=== PATIENT | female | born 1965 | race Caucasian/White ===

== ENCOUNTER 2020-06-22 16:45 | Outpatient (REF) | payer SELFPAY ==
[2020-06-25 16:58] LABS: SARS-CoV-2 RNA Undetected (Undetected); SARS-CoV-2 Specimen Source Nasal
== END 2020-06-22 17:05 ==
LOC: NCHCN 16:45
PROVIDERS: Visit Provider Nurse Practitioner Family
DX: J06.9 Acute upper respiratory infection, unspecified (principal); Z11.59 Encounter for screening for other viral diseases
CPT/HCPCS: U0003

== ENCOUNTER 2023-06-27 11:50 | Emergency (ER) | payer OTHER, SELFPAY ==
[2023-06-27 12:00] VITALS: BP 133/96; PULSE 75; RESP 18; TEMP 36.9; O2SAT 97
[2023-06-27] MEDS: Ketorolac 30 MG/ML VIAL IVP (12:31)
--- NOTE | 2023-06-27 12:36 | ED.GENADUL_ITS ---
Discharge Plan Disposition Patient Disposition: Home Condition: Stable Discharge Details Clinical Impression: Acute right flank pain, Pyelonephritis Primary Care Provider: Unknown,Unknown ED Provider: Zaki Mason Home Meds and New Rx's Prescriptions: New cefpodoxime 200 mg tablet 200 mg PO BID Qty: 20 0RF Rx Instructions: must administer with a meal/food Continued trazodone 50 mg tablet 50 mg PO QHS PRN Patient Comments: TAKE 1 TABLET BY MOUTH EVERY DAY AT BEDTIME NEEDED FOR SLEEP prednisolone acetate 1 % drops,suspension 1 drp ophthalmic (eye) ONCE Rx Instructions: left eye Estring 2 mg (7.5 mcg /24 hour) ring 1 vag ring VAGINAL ONCE Patient Comments: FOLLOW PACKAGE DIRECTIONS Rx Instructions: for three months and then switch with new one. timolol maleate 0.5 % gel forming solution 1 drp ophthalmic (eye) BID Patient Comments: PLACE 1 DROP INTO THE RIGHT EYE DAILY. Rx Instructions: in right eye losartan 100 mg tablet 100 mg PO DAILY Patient Comments: TAKE 1 TABLET BY MOUTH EVERY DAY dorzolamide 2 % drops 1 drp ophthalmic (eye) BID Patient Comments: PLACE 1 DROP INTO THE RIGHT EYE 2 TIMES A DAY. Rx Instructions: in right eye bromfenac 0.09 % drops 1 drp ophthalmic (eye) BID Rx Instructions: in right eye Discharge Instructions Instructions: Kidney Infection (ED) Additional Instructions: Your presentation today is concerning for potential urinary tract infection affecting your kidney. Urine cultures have been sent today and are pending at time of discharge. You are being started empirically on an antibiotic. Should urine culture grow bacteria that are resistant to this antibiotic, you will be contacted to adjust antibiotic treatment. Should symptoms not improve with antibiotics as expected, additional diagnostic testing and treatment may be necessary. Please be sure to follow-up with your doctor. Call today to schedule timely follow-up. Return to the emergency department immediately should you have worsening or new concerning symptoms. Discharge Data Discharge Date/Time-TO BE ENTERED AT DEPARTURE: 06/27/23 14:06 Medical Decision Making 1238??58-year-old female here with intermittent, progressively worse right flank pain over the past 2 to 3 weeks. She has associated increased urinary frequency without dysuria or hematuria. Patient has no CVA tenderness and abdominal exam is benign. Patient is hemodynamically stable. Concern for pyelonephritis versus less likely ureterolithiasis versus other. I will give Toradol IV for discomfort. Screening labs and urinalysis pending. -- Urinalysis reviewed and only 3-5 WBCs noted but patient does have few bacteria noted as well as positive nitrite. Results were reviewed with the patient. We discussed additional diagnostic testing including CT imaging. As part of a shared decision-making process, patient elects for trial of antibiotic to see if resolution. She understands she should follow-up for additional outpatient diagnostic testing and treatment should symptoms persist. She was encouraged to return should she develop any worsening or new concerning symptoms. Disposition decision was made weighing the risks and benefits of hospitalization versus outpatient treatment, the risk for further decompensation, and the patient's wishes. The patient was stable and requested discharge. Lab Data Lab results reviewed: Yes I reviewed the patient's lab results. Labs: 06/27/23 12:25 Urine - Reflex from Ua Urine Culture - Final Gram Positive Jocelyn,Mixed Laboratory Tests Range/Units 06/27/23 12:25 WBC (4.4-10.8) 10^3/uL 7.23 RBC (3.93-5.22) 10^6/uL 4.50 Hgb (11.2-15.7) g/dL 13.7 Hct (36.0-46.0) % 40.8 MCV (80-95) fL 91 MCH (27.0-33.0) pg 30.4 MCHC (32.0-36.0) % 33.6 RDW (11.7-14.6) % 12.1 Plt Count (130-400) 10^3/uL 374 MPV (8.0-11.0) fL 8.9 Immature Gran % 0.1 Neutrophils % 51.7 Lymphocytes % 32.5 Monocytes % 9.4 Eosinophils % 4.8 Basophils % 1.5 Nucleated RBC % (0.0-0.3) % 0.0 Absolute Neutrophils (1.2-6.7) 10^3/uL 3.73 Absolute Lymphocytes (1.2-3.4) 10^3/uL 2.35 Absolute Monocytes (0.1-0.8) 10^3/uL 0.68 Absolute Eosinophils (0.0-0.7) 10^3/uL 0.35 Absolute Basophils (0.0-0.2) 10^3/uL 0.11 Sodium (136-145) mmol/L 140 Potassium (3.5-5.1) mmol/L 3.5 Chloride (98-107) mmol/L 105 Carbon Dioxide (21.0-32.0) mmol/L 28.5 Anion Gap (3-11) mmol/L 6.5 BUN (7-18) mg/dL 11 Creatinine (0.55-1.02) mg/dL 0.7 Est GFR (CKD-EPI 2020) (mL/min/1.73m2) 99.57 Glucose (74-106) mg/dL 101 Calcium (8.5-10.1) mg/dL 9.6 Total Bilirubin (0.2-1.0) mg/dL 0.4 AST (15-37) U/L 22 ALT (14-59) U/L 31 Alkaline Phosphatase (46-116) U/L 71 Total Protein (6.4-8.2) g/dL 7.6 Albumin (3.4-5.0) g/dL 4.1 Lipase (16-77) U/L 70 Urine Color (Yellow) Yellow Urine Clarity (Clear) Clear Urine pH (5-8) 6.0 Ur Specific [place] (1.005-1.025) <= 1.005 Urine Protein (Negative) mg/dL Negative Urine Ketones (Negative) mg/dL Negative Urine Blood (Negative) Negative Urine Nitrite (Negative) Positive H Urine Bilirubin (Negative) Negative Urine Urobilinogen (Up to 0.2) mg/dL 0.2 Ur Leukocyte Esterase (Negative) Negative Urine RBC (0-2) HPF 0-2 Urine WBC (0-5) HPF 3-5 Ur Epithelial Cells (Negative) HPF Few Urine Crystals (Negative) HPF Negative Urine Bacteria (Negative) HPF Few Urine Casts (Negative) LPF Negative Urine Mucus (Negative) Negative Ur Culture Indicated? Yes Urine Glucose (Negative) mg/dL Negative HPI General Mode of arrival: ambulatory . Date/Time Provider Initiated Documentation: 06/27/23 12:10 . Limitations to Documentation: no limitations . Information obtained by: patient . HPI Narrative: 58-year-old female presents with chief complaint of right flank pain. Patient notes she has had pain in her right flank for the past 2 to 3 weeks. Pain has been intermittent but progressively worsening in intensity. She notes increased urinary frequency. No dysuria or hematuria. She denies abdominal pain. No fever. No nausea vomiting. She does note generally not feeling well. Related Data Home Medications Medication Instructions Recorded Confirmed bromfenac 0.09 % eye drops 1 drp ophthalmic (eye) BID 06/27/23 06/27/23 cefpodoxime 200 mg tablet 200 mg PO BID #20 tabs 06/27/23 dorzolamide 2 % eye drops 1 drp ophthalmic (eye) BID 06/27/23 06/27/23 estradiol 2 mg (7.5 mcg/24 hour) 1 vag ring vaginal ONCE 06/27/23 06/27/23 vaginal ring (Estring) losartan 100 mg tablet 100 mg PO DAILY 06/27/23 06/27/23 prednisolone acetate 1 % eye 1 drp ophthalmic (eye) ONCE 06/27/23 06/27/23 drops,suspension timolol maleate 0.5 % eye gel 1 drp ophthalmic (eye) BID 06/27/23 06/27/23 forming solution trazodone 50 mg tablet 50 mg PO QHS PRN 06/27/23 06/27/23 Previous Rx's Medication Instructions Recorded cefpodoxime 200 mg tablet 200 mg PO BID #20 tabs 06/27/23 Allergies Allergy/AdvReac Type Severity Reaction Status Date / Time Sulfa (Sulfonamide AdvReac Intermediate Unverified 06/27/23 12:07 Antibiotics) General Stated Complaint: Urinary NABIL: 3 Review of Systems All systems reviewed & are unremarkable except as noted in HPI and below Constitutional Constitutional: Reports as per HPI and Denies fever(s) Gastrointestinal Gastrointestinal: Denies abdominal pain PFSH All Active Problems (Updated 06/27/23 @ 13:37 by Zaki Mason MD) Pyelonephritis (Acute) Acute right flank pain (Acute) Social History Smoking/Tobacco Use Status: Never Smoking risk assessment performed?: Yes Alcohol Intake: current Alcohol Intake frequency: holidays/special occasions only Substance use type: does not use Housing: house Do you feel safe at home: Yes Do you feel safe in your relationship?: Yes Exam Const General: cooperative and no acute distress HENMT Mouth: moist mucous membranes Eyes Conjunctivae: normal conjunctivae Sclera: normal sclerae Resp Auscultation: clear to auscultation bilaterally, no rales, no rhonchi and no wheezes Cardio Rate: regular rate and not tachycardic Rhythm: regular rhythm GI Palpation: soft, not firm, no guarding, no masses, not rigid and nontender Back/Spine/Pelvis Back: no CVA tenderness Skin General skin exam: no rashes or lesions noted Neuro General: patient alert, patient awake and tone normal Extrem General: no edema Course Vital Signs Vital signs: Vital Signs Temperature 36.9 C 06/27/23 12:00 Pulse 75 06/27/23 12:00 Respiratory Rate 18 06/27/23 12:00 Blood Pressure 133/96 H 06/27/23 12:00 Pulse Oximetry 97 06/27/23 12:00 Temperature 36.9 C 06/27/23 12:00 Temperature Source Oral 06/27/23 12:00 Pulse 75 06/27/23 12:00 Respiratory Rate 18 06/27/23 12:00 Respiratory Effort Normal 06/27/23 12:27 Blood Pressure 133/96 H 06/27/23 12:00 Blood Pressure Position Sitting 06/27/23 12:00 Pulse Oximetry 97 06/27/23 12:00 Oxygen Delivery Method Room Air 06/27/23 12:00 Oxygen Flow Rate 0 06/27/23 12:00 Pain Level 5 06/27/23 12:00
[2023-06-27 12:37] LABS: Abs Immature Grans 0.01 10^3/uL (0.0-0.06); Absolute Basophil Count 0.11 10^3/uL (0.0-0.2); Absolute Eosinophil Count 0.35 10^3/uL (0.0-0.7); Absolute Lymphocyte Count 2.35 10^3/uL (1.2-3.4); Absolute Monocyte Count 0.68 10^3/uL (0.1-0.8); Absolute Neutrophil Count 3.73 10^3/uL (1.2-6.7); Basophils % 1.5; Eosinophils % 4.8; HCT 40.8 % (36.0-46.0); HGB 13.7 g/dL (11.2-15.7); Immature Grans % 0.1; Lymphocytes % 32.5; MCH 30.4 pg (27.0-33.0); MCHC 33.6 % (32.0-36.0); MCV 91 fL (80-95); MPV 8.9 fL (8.0-11.0); Monocytes % 9.4; Neutrophils % 51.7; Platelet Count 374 10^3/uL (130-400); RDW 12.1 % (11.7-14.6); RDW-SD 40.4 fL; WBC 7.23 10^3/uL (4.4-10.8)
[2023-06-27 12:42] LABS: Bilirubin Negative (Negative); Blood Negative (Negative); Clarity Clear (Clear); Glucose Negative (Negative); Ketones Negative (Negative); Leukocyte Esterase Negative (Negative); Nitrite Positive (Negative); Specific Gravity <= 1.005 (1.005-1.025); Urobilinogen 0.2 mg/dL (Up to 0.2)
[2023-06-27 12:49] LABS: ALT 31 U/L (14-59); AST 22 U/L (15-37); Albumin 4.1 g/dL (3.4-5.0); Alkaline Phosphatase 71 U/L (46-116); Anion Gap 6.5 mmol/L (3-11); BUN 11 mg/dL (7-18); Bilirubin, Total 0.4 mg/dL (0.2-1.0); CO2 28.5 mmol/L (21.0-32.0); CREATININE 0.7 mg/dL (0.55-1.02); Calcium 9.6 mg/dL (8.5-10.1); Chloride 105 mmol/L (98-107); Estimated GFR 99.57 (mL/min/1.73m2); Glucose 101 mg/dL (74-106); Lipase 70 U/L (16-77); Potassium 3.5 mmol/L (3.5-5.1); Sodium 140 mmol/L (136-145); Total Protein 7.6 g/dL (6.4-8.2)
[2023-06-27 12:50] LABS: Bacteria Few HPF (Negative); C & S Indicated? Yes; Casts Negative LPF (Negative); Crystals Negative HPF (Negative); Epithelial Cells Few HPF (Negative); Mucus Negative (Negative); RBC 0-2 HPF (0-2)
[2023-06-27] MEDS: cefTRIAXone 1 GM/50 ML BAG IVPB (13:39)
[2023-06-27 14:05] VITALS: BP 139/78; PULSE 68; RESP 18; O2SAT 99
== END 2023-06-27 14:06 | disposition home or self-care (01) ==
PROVIDERS: Physician Assistant; Emergency Provider Student in an Organized Health Care Education/Training Program
DX: R10.9 Unspecified abdominal pain (principal); N12 Tubulo-interstitial nephritis, not specified as acute or chronic
CPT/HCPCS: 36415; 80053; 83690; 96365; 96375; 99284; 81003; 81015; 85025; 87086; J0696; J1885

== ENCOUNTER 2023-09-17 13:11 | Emergency (ER) | payer OTHER, SELFPAY ==
--- NOTE | 2023-09-17 13:23 | ED.GENADUL_ITS ---
HPI General Date/Time Provider Initiated Documentation: 09/17/23 13:23 . Limitations to Documentation: no limitations . Information obtained by: patient and RN notes reviewed . History of Present Illness 58 year old F presents to the emergency department with the chief complaint of right flank pain, urinary frequency, retained estrogen ring, described as moderate, and is localized to the back and pelvis. Patient reports no radiation. Patient started experiencing this day(s) and it has been constant. No relieving factors improve symptom(s), No exacerbating factors reported . Patient notes no other symptoms.. Patient did receive the following treatments prior to arrival, none Related Data Home Medications Medication Instructions Recorded Confirmed bromfenac 0.09 % eye drops 1 drp ophthalmic (eye) BID 06/27/23 09/17/23 dorzolamide 2 % eye drops 1 drp ophthalmic (eye) BID 06/27/23 09/17/23 estradiol 2 mg (7.5 mcg/24 hour) 1 vag ring vaginal ONCE 06/27/23 09/17/23 vaginal ring (Estring) losartan 100 mg tablet 100 mg PO DAILY 06/27/23 09/17/23 prednisolone acetate 1 % eye 1 drp ophthalmic (eye) ONCE 06/27/23 09/17/23 drops,suspension timolol maleate 0.5 % eye gel 1 drp ophthalmic (eye) BID 06/27/23 09/17/23 forming solution trazodone 50 mg tablet 50 mg PO QHS PRN 06/27/23 09/17/23 Allergies Allergy/AdvReac Type Severity Reaction Status Date / Time Sulfa (Sulfonamide AdvReac Intermediate Nausea Unverified 09/17/23 13:28 Antibiotics) General NABIL: 3 Review of Systems Constitutional Constitutional: Reports as per HPI, Denies chills, Denies fever(s) and Denies poor appetite Cardiovascular Cardiovascular: Denies chest pain Respiratory Respiratory: Denies cough Gastrointestinal Gastrointestinal: Denies abdominal pain, Denies change in bowel habits, Denies nausea and Denies vomiting Genitourinary Genitourinary: Reports as per HPI Musculoskeletal Musculoskeletal: Reports as per HPI Integumentary/Breasts Skin/Breast: Reports as per HPI and Denies rash Exam Const General: cooperative, healthy appearing, comfortable, no acute distress, well developed and well groomed Nutritional Appearance: average body habitus and well nourished Orientation: alert and awake Resp Effort & Inspection: normal respiratory effort and no respiratory distress Auscultation: clear to auscultation bilaterally, no rales, no rhonchi and no wheezes Cardio Rate: regular rate Rhythm: regular rhythm Heart Sounds: S1 normal and S2 normal GI Inspection: normal to inspection Palpation: soft, no hepatosplenomegaly, not firm, no guarding, not rigid and nontender External Female Exam: normal external appearance and normal appearance of the urethra Bimanual Exam- Vagina & Uterus: normal bimanual exam, normal palpation and other (ring present, able to be removed) Back/Spine/Pelvis Back: no CVA tenderness Skin General skin exam: no rashes or lesions noted Trauma: no lacerations or abrasions Neuro General: patient alert and patient awake Cognition: normal cognition Speech: speech normal Gait: normal gait Medical Decision Making Patient is a plesant 58 year old female with PMH of vaginal atrophy, presenitng with c/c of possible UTI and right sided flank pain. Began this AM. States taht pain has been colicky, was more severe earlier in the day. Denies fevers/chills. Endorses urinary frequency. No dysurea. No vaginal discharge but she is concern ed that she has an estrogen ring in place that was supposed to have come out several months ago, was not able to remove herself so left it in place. Denies pain iwth intercourse although denies signficant sexual activity, no new partners. Recent travel. She has been biking more. On exam, patient appears nontoxic. She resting comfortably no acute distress. She denies any pain with CVA percussion, pain seems to be more inferior to this. Abdominal exam is benign but she does have pain laterally and describes the pain may have started more in the CVA area. Considered kidney stone that may be traveling. This would correlate with the patient's description of more colicky pain. The recent travel, she is not hydrating as much as typical. Vaginal exam was also performed with her concern for retained estrogen ring and difficulties removing. This was able to be removed by myself. It did initially have some suction which made removal slightly difficult but it came out without pain or difficulty with gentle, constant pressure. No abnormal discharge, no sigfnicant pain to suggest PID. Labs reviewed, unremarkable. Imaging pending. With biking recently, also considred muscle pain. At the end of my shift, care transitioned to Souleymane Verma NP with imaging and disposition pending. Quality:[facility] Health Related Social Needs: No Data to Display [facility] Social History Smoking/Tobacco Use Status: Never Smoking risk assessment performed?: Yes Alcohol Intake: current Alcohol Intake frequency: holidays/special occasions only Substance use type: does not use Housing: house Do you feel safe at home: Yes Do you feel safe in your relationship?: Yes Sign Out Sign Out Data: Sign Out Comment: Care transitioned to Souleymane Verma NP, with imaging pending. Questioning nephrolithiasis. If negative, may be MSK flank pain associated with biking. Labs reassuring. Last updated by Leigh Monroe PA at 09/17/23 15:34 Discharge Plan Discharge Details Chief Complaint: FlankPain Primary Care Provider: Unknown,Unknown ED Provider: Leigh Monroe Home Meds and New Rx's Prescriptions: No Action trazodone 50 mg tablet 50 mg PO QHS PRN Patient Comments: TAKE 1 TABLET BY MOUTH EVERY DAY AT BEDTIME NEEDED FOR SLEEP prednisolone acetate 1 % drops,suspension 1 drp ophthalmic (eye) ONCE Rx Instructions: left eye Estring 2 mg (7.5 mcg /24 hour) ring 1 vag ring VAGINAL ONCE Patient Comments: FOLLOW PACKAGE DIRECTIONS Rx Instructions: for three months and then switch with new one. timolol maleate 0.5 % gel forming solution 1 drp ophthalmic (eye) BID Patient Comments: PLACE 1 DROP INTO THE RIGHT EYE DAILY. Rx Instructions: in right eye losartan 100 mg tablet 100 mg PO DAILY Patient Comments: TAKE 1 TABLET BY MOUTH EVERY DAY dorzolamide 2 % drops 1 drp ophthalmic (eye) BID Patient Comments: PLACE 1 DROP INTO THE RIGHT EYE 2 TIMES A DAY. Rx Instructions: in right eye bromfenac 0.09 % drops 1 drp ophthalmic (eye) BID Rx Instructions: in right eye
[2023-09-17 13:25] VITALS: PULSE 63; RESP 18; TEMP 36.9; O2SAT 99
--- OUTSIDE RECORDS SUMMARY | 2023-09-17 13:39 | XMS_ITS | CCD ---
Author Name Unknown Address [address] [place] [address] [id number] Organization Unknown Address [address] [place] [address] [id number] Care Team Providers Care Internet Specialist Name Role Phone CATHRYN SNOW Attending Physician [phone] Vital Signs Unknown or Not Available. Allergies Allergy Code Allergy Type Reaction Status SULFA (sulfonamide) 0 Drug allergy Nausea Act ping HORSES CATS {Clinical monitoring unavailable} 0 D rug allergy WHEEZING Active Procedures Unknown or Not Available. History of Immunizations Unknown or Not Available. Problems Unknown or Not Available. Results [facility] PILLO KONGONIX* - Mike ect Date/Time: 06/21/2022 09:37 Test Name Code Test Result Test Units Test Ref Rang e Tier- 48828-0 PRE-OP N/A SARS COV2 RNA: 74796-2 NEGATIVE N/A REFERENCE RANGE: NEGAT Active Medications Unknown or Not Available. Medications Administered During Visit Unknown or Not Available. Encounters Encounter Diagnosis Diagnosis Code Start Date Pre-surgery testing [id number] 06/21/2022 Social History Smoking Status Code Start Date End Date Never smoker [id number] Patient Decision Aids Unknown or Not Available. Discharge Instructions You were admitted to [facility] on 06/21/2022 20:58 with a principal diagnosis of Encounter for preprocedural laboratory examination You had the following tests done:JELLY COVID RHEONIX* You were discharged from [facility] on 06/21/2022 20:58 Should you have any questions prior to discharge, please contact a member of your healthcare team. If you have left the hospital and have any questions, please contact your primary care physician. Chief Complaint and Reason For Visit Unknown or Not Available. Function Status Unknown or Not Available. Plan of Care Unknown or Not Available. Referral/Transition of Care Unknown or Not Available.
[2023-09-17 13:42] LABS: Bilirubin Negative (Negative); Blood Negative (Negative); Clarity Clear (Clear); Glucose Negative (Negative); Ketones Negative (Negative); Leukocyte Esterase Negative (Negative); Nitrite Negative (Negative); Urobilinogen 0.2 mg/dL (Up to 0.2)
--- NOTE | 2023-09-17 14:15 | DI.CT_ITS ---
Exam(s) CT RENAL COLIC WO EXAM: CT RENAL COLIC WO CLINICAL HISTORY: rigth flank pain. TECHNIQUE: Imaging Protocol: Axial computed tomography images with coronal and sagittal reformatted images were created and reviewed. CONTRAST MATERIAL: Noncontrast COMPARISON: No exams were available for comparison FINDINGS: ABDOMEN: Lung Bases: Normal where visualized. Liver: Normal attenuation. No measurable mass. Gallbladder and biliary tract: Status post cholecystectomy. No radiodense calculus or dilation. Pancreas: Normal density, no calcifications or inflammatory process. Spleen: Normal. Kidneys: Normal size, contour and axis. No radiodense stones or obstructive uropathy. Small fatty les ion lower pole left kidney, consistent with benign angiomyolipoma. Adrenal glands: Small low-density lesion right adrenal consistent with benign adenoma. No follow-up recommended. (ACR incidental findings committee white paper 2018.) Abdominal Aorta: Abdominal portion non-dilated. Soft tissues: Unremarkable. PELVIS: Bladder: Nearly empty. Not well evaluated.. No evidence of stones.No visible mass. Bowel: Moderate to increased stool throughout the colon. No obstruction or bowel wall thickening. Appendix normal. Reproductive: Unremarkable. Peritoneal cavity: No ascites, collection or mesenteric inflammatory response. Bones: Unremarkable for age.. IMPRESSION: No acute abnormality in the abdomen and pelvis. RADIATION DOSE DELIVERED: Total DLP DATA REPOSITORY: All CT scans at this facility are submitted to the National Radiology Data Registry (NRDR) Dose Index Registry (DIR) with the [employer] (ACR). RADIATION OPTIMIZATION: All CT scans at this facility use at least one of these dose optimization te chniques: automated exposure control; mA and/or kV adjustment per patient size (includes targeted exa ms where dose is matched to clinical indication); or iterative reconstruction.
[2023-09-17 14:37] LABS: Absolute Basophil Count 0.08 10^3/uL (0.0-0.2); Absolute Eosinophil Count 0.28 10^3/uL (0.0-0.7); Absolute Lymphocyte Count 1.68 10^3/uL (1.2-3.4); Absolute Monocyte Count 0.44 10^3/uL (0.1-0.8); Absolute Neutrophil Count 1.98 10^3/uL (1.2-6.7); Basophils % 1.8; Eosinophils % 6.3; HCT 40.7 % (36.0-46.0); HGB 13.7 g/dL (11.2-15.7); Lymphocytes % 37.7; MCH 30.5 pg (27.0-33.0); MCHC 33.7 % (32.0-36.0); MCV 91 fL (80-95); Monocytes % 9.9; Neutrophils % 44.3; Platelet Count 361 10^3/uL (130-400); RBC 4.49 10^6/uL (3.93-5.22); RDW 12.4 % (11.7-14.6); WBC 4.46 10^3/uL (4.4-10.8)
[2023-09-17 14:48] LABS: ALT 28 U/L (14-59); AST 20 U/L (15-37); Albumin 3.9 g/dL (3.4-5.0); Alkaline Phosphatase 81 U/L (46-116); Anion Gap 10.9 mmol/L (3-11); BUN 12 mg/dL (7-18); Bilirubin, Total 0.3 mg/dL (0.2-1.0); CO2 27.1 mmol/L (21.0-32.0); CREATININE 0.6 mg/dL (0.55-1.02); Calcium 9.3 mg/dL (8.5-10.1); Chloride 105 mmol/L (98-107); Estimated GFR 103.33 (mL/min/1.73m2); Glucose 100 mg/dL (74-106); Potassium 3.7 mmol/L (3.5-5.1); Sodium 143 mmol/L (136-145); Total Protein 7.1 g/dL (6.4-8.2)
--- NOTE | 2023-09-17 16:07 | DI.VRAD_ITS ---
PROCEDURE INFORMATION: Exam: CT Abdomen And Pelvis Without Contrast Exam date and time: 09/17/2023 3:19 PM Age: 58 years old Clinical indication: Other: Right flank pain TECHNIQUE: Imaging protocol: Computed tomography of the abdomen and pelvis without contrast. Radiation optimization: All CT scans at this facility use at least one of these dose optimization techniques: automated exposure control; mA and/or kV adjustment per patient size (includes targeted exams where dose is matched to clinical indication); or iterative reconstruction. COMPARISON: No relevant prior studies available. FINDINGS: Lungs: Calcified granuloma in the medial right lower lobe. Liver: Unremarkable as visualized Gallbladder and bile ducts: Status post cholecystectomy. Pancreas: Unremarkable as visualized Spleen: Unremarkable as visualized Adrenal glands: 1.3 x 2.0 cm hypodense lesion in the right adrenal gland. Hounsfield units near 0. Left adrenal glands unremarkable. Kidneys and ureters: No renal calculi. No ureteral calculi. No hydronephrosis. In the lower pole of the left kidney is a 1.2 cm predominantly fat density lesion. No other renal masses. Stomach and bowel: Unremarkable. No obstruction. No mucosal thickening. Appendix: No evidence of appendicitis. Intraperitoneal space: Unremarkable. No free air. No significant fluid collection. Vasculature: Unremarkable. No abdominal aortic aneurysm. Lymph nodes: No enlarged lymph nodes. Urinary bladder: Bladder is decompressed without gross abnormalities. Reproductive: Unremarkable as visualized. Bones/joints: Unremarkable. No acute fracture. Soft tissues: Unremarkable. IMPRESSION: 1. No urolithiasis. 2. 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 3. 1.3 x 1.2 cm hypodense lesion in the right adrenal gland likely an adrenal cyst or adenoma. 4. Status post cholecystectomy. Dictated and Authenticated by: Daniel Morales MD. Ordering:LAUREL Abraham MD
--- NOTE | 2023-09-17 16:34 | ED.PROG_ITS ---
Date of service: 09/17/23 Time of Service: 16:10 Medical Decision Making Reviewed radiological imaging and there is no urolithiasis notedPatient signed out to me by Leigh SOLIS. Please see her initial documentation for presentation complaint review of systems and workup. Patient signed out to me pending review of CT imaging and disposition. Bedside report was received and patient did state improvement of discomfort. Current working differential diagnosis of right-sided kidney stone versus musculoskeletal strain secondary to biking activity yesterday. Reviewed radiological imaging along with radiologist interpretation and no urolithiasis is noted. 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 and a 1.3 x 1.2 cm hypodense lesion in the right adrenal gland likely an adrenal cyst or adenoma. Patient does state knowledge of the cyst in the right adrenal gland but was not aware of anything in the left kidney. Will have patient follow-up with primary care provider given that this is less than 4 cm and pain is on the right I do not feel this is contributing to patient's current visit. Patient encouraged to use conservative management for low back pain and return for new or worsening symptoms. After discussion of diagnosis and plan of care patient has no further needs, questions, or concerns and states clear understanding to return to the emergency department for any worsening symptoms. This documentation was generated using [employer] dictation system, please disregard any oddities of phrase or misspellings. Imaging Data Radiologic Study: Imaging: CT Scan Radiologist's impression: Exam(s) PROCEDURE INFORMATION: Exam: CT Abdomen And Pelvis Without Contrast Exam date and time: 09/17/2023 3:19 PM Age: 58 years old Clinical indication: Other: Right flank pain TECHNIQUE: Imaging protocol: Computed tomography of the abdomen and pelvis without contrast. Radiation optimization: All CT scans at this facility use at least one of these dose optimization techniques: automated exposure control; mA and/or kV adjustment per patient size (includes targeted exams where dose is matched to clinical indication); or iterative reconstruction. COMPARISON: No relevant prior studies available. FINDINGS: Lungs: Calcified granuloma in the medial right lower lobe. Liver: Unremarkable as visualized Gallbladder and bile ducts: Status post cholecystectomy. Pancreas: Unremarkable as visualized Spleen: Unremarkable as visualized Adrenal glands: 1.3 x 2.0 cm hypodense lesion in the right adrenal gland. Hounsfield units near 0. Left adrenal glands unremarkable. Kidneys and ureters: No renal calculi. No ureteral calculi. No hydronephrosis. In the lower pole of the left kidney is a 1.2 cm predominantly fat density lesion. No other renal masses. Stomach and bowel: Unremarkable. No obstruction. No mucosal thickening. Appendix: No evidence of appendicitis. Intraperitoneal space: Unremarkable. No free air. No significant fluid collection. Vasculature: Unremarkable. No abdominal aortic aneurysm. Lymph nodes: No enlarged lymph nodes. Urinary bladder: Bladder is decompressed without gross abnormalities. Reproductive: Unremarkable as visualized. Bones/joints: Unremarkable. No acute fracture. Soft tissues: Unremarkable. IMPRESSION: 1. No urolithiasis. 2. 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 3. 1.3 x 1.2 cm hypodense lesion in the right adrenal gland likely an adrenal cyst or adenoma. 4. Status post cholecystectomy. Dictated and Authenticated by: Daniel Morales MD. Ordering:LAUREL Abraham MD Lab Data Lab results reviewed: Yes I reviewed the patient's lab results. Quality:SDOH Health Related Social Needs: No Data to Display Sign Out Sign Out Data: Sign Out Comment: Care transitioned to Souleymane Verma NP, with imaging pending. Questioning nephrolithiasis. If negative, may be MSK flank pain associated with biking. Labs reassuring. Last updated by Leigh Monroe PA at 09/17/23 15:34 Discharge Plan Disposition Patient Disposition: Home Discharge Details Clinical Impression: Low back pain Primary Care Provider: Unknown,Unknown ED Provider: Alton Verma Home Meds and New Rx's Prescriptions: Continued trazodone 50 mg tablet 50 mg PO QHS PRN Patient Comments: TAKE 1 TABLET BY MOUTH EVERY DAY AT BEDTIME NEEDED FOR SLEEP prednisolone acetate 1 % drops,suspension 1 drp ophthalmic (eye) ONCE Rx Instructions: left eye Estring 2 mg (7.5 mcg /24 hour) ring 1 vag ring VAGINAL ONCE Patient Comments: FOLLOW PACKAGE DIRECTIONS Rx Instructions: for three months and then switch with new one. timolol maleate 0.5 % gel forming solution 1 drp ophthalmic (eye) BID Patient Comments: PLACE 1 DROP INTO THE RIGHT EYE DAILY. Rx Instructions: in right eye losartan 100 mg tablet 100 mg PO DAILY Patient Comments: TAKE 1 TABLET BY MOUTH EVERY DAY dorzolamide 2 % drops 1 drp ophthalmic (eye) BID Patient Comments: PLACE 1 DROP INTO THE RIGHT EYE 2 TIMES A DAY. Rx Instructions: in right eye bromfenac 0.09 % drops 1 drp ophthalmic (eye) BID Rx Instructions: in right eye Discharge Instructions Instructions: Low Back Strain (ED) Additional Instructions: Please continue to take oxzo-bye-ofafatd pain medication as needed for d iscomfort. You may perform activities as tolerated Please return immediately to the emergency department for any new or significant worsening symptoms Otherwise follow-up with your primary care provider for discussion of abnormal CT imaging findings for your kidneys. Referrals: [facility] [Provider Group] (Feel free to call [facility] for any further future follow-up gynecological needs.) [facility] [Outside] - 2 weeks (Follow-up with primary care provider for reassessment and further discussion of abnormal CT findings) Discharge Data Discharge Date/Time-TO BE ENTERED AT DEPARTURE: 09/17/23 17:05
[2023-09-17 17:03] VITALS: BP 136/80; PULSE 82; RESP 17; TEMP 36.8; O2SAT 99
== END 2023-09-17 17:05 | disposition home or self-care (01) ==
PROVIDERS: Physician Assistant; Emergency Provider Nurse Practitioner Family
DX: R10.9 Unspecified abdominal pain (principal); D17.71 Benign lipomatous neoplasm of kidney; E27.8 Other specified disorders of adrenal gland
CPT/HCPCS: 00123; 36415; 80053; 99284; 74176; 81003; 85025

== ENCOUNTER 2024-04-01 13:40 | Outpatient (REF) | payer OTHER, SELFPAY ==
--- NOTE | 2024-04-01 13:40 | PAPFT_PTH ---
PATIENT: Elisha Power LOC: [facility] U#:[id number] AGE/SX: 58/F ROOM: RE04/01/[address]: Abby Collins MD : 1965 BED: DIS: 04/01/2024 SPEC #: [id number] RECD: 04/02/24 13:07 STATUS: CHIKIS RECony #: [id number] LEVON: 04/01/24 13:[address]: Abby Collins DEPT: [facility] Cytology RECD BY: Vinita Foster ENTERED: 04/02/24 13:07 SP TYPE: PAPFT RAMAKRISHNA DR: Unknown,Unknown Tissues: 1 - CX/ENDOCX FOR PAP SMEARS Procedures: PAP THIN PREP/[facility] Screening HPV DNA PROBE Comments: [id number] (HPV 16 & 18/45)
== END 2024-04-01 13:41 | disposition home or self-care (01) ==
LOC: LBN 13:40
PROVIDERS: Visit Provider Obstetrics & Gynecology
DX: Z11.51 Encounter for screening for human papillomavirus (HPV) (principal); Z01.419 Encounter for gynecological examination (general) (routine) without abnormal findings
CPT/HCPCS: 88142; 87624

== ENCOUNTER 2024-05-07 02:40 | Outpatient (CLI) | payer OTHER, SELFPAY ==
--- NOTE | 2024-05-07 | DI.MAMMO_ITS ---
Exam(s) MAMMO SCREENING EXAM: MAMMO SCREENING CLINICAL HISTORY: screening,z12.31 TECHNIQUE: Mammograms were interpreted according to the usual protocol including computer analysis w [employer] CAD system, tomosynthesis and C-view imaging. COMPARISON: Outside exams dated 2008 through 2014. FINDINGS: The breasts are composed of heterogeneously dense fibroglandular densities, Breast Density category C . No suspicious masses or suspicious microcalcifications are seen. Scattered benign-appearing calcific ations. Two biopsy marker clips are noted in the central right breast. No skin thickening or abnormal axillary lymph nodes are seen. There has been no significant change from prior exams. IMPRESSION: BI-RADS Category 1, Negative mammogram. Yearly screening mammography is recommended. Breast Density Category C, heterogeneously Dense. The mammogram demonstrates the patient's breast tissue is dense. Dense breast tissue is very common a nd is not abnormal but dense breast tissue can make it harder to find cancer on a mammogram. Also, de nse breast tissue may increase breast cancer risk. This information about the result of the mammogram report was provided to the patient to raise their awareness. Use this report when you speak with the patient about their risks for breast cancer, which includes their family history. At that time, you may recommend additional screening tests (Ultrasound or MRI) as they might be useful based on their r isk. A negative radiographic report should not delay biopsy if a dominant or clinically suspicious mass is present. Up to ten percent of cancers are not identified on mammography. A negative report may reinforce clinical impression. Adenosis and dense breasts may obscure an underlying neoplasm. False positive reports average 6 to 10%.
== END 2024-05-07 03:00 ==
LOC: DI 02:40
PROVIDERS: Visit Provider Obstetrics & Gynecology
DX: Z12.31 Encounter for screening mammogram for malignant neoplasm of breast (principal)
CPT/HCPCS: 77063; 77067

== ENCOUNTER 2024-07-30 14:50 | Outpatient (REF) | payer OTHER, SELFPAY ==
[2024-07-30 15:24] LABS: Abs Immature Grans 0.01 10^3/uL (0.0-0.06); Absolute Basophil Count 0.15 10^3/uL (0.0-0.2); Absolute Eosinophil Count 0.33 10^3/uL (0.0-0.7); Absolute Lymphocyte Count 1.77 10^3/uL (1.2-3.4); Absolute Monocyte Count 0.62 10^3/uL (0.1-0.8); Absolute Neutrophil Count 2.59 10^3/uL (1.2-6.7); Basophils % 2.7 %; HCT 37.2 % (36.0-46.0); Immature Grans % 0.2 %; Lymphocytes % 32.4 %; MCHC 34.9 % (32.0-36.0); MCV 89 fL (80-95); MPV 9.6 fL (8.0-11.0); Monocytes % 11.3 %; Neutrophils % 47.4 %; Platelet Count 387 10^3/uL (130-400); RDW 12.1 % (11.7-14.6); RDW-SD 38.6 fL; WBC 5.47 10^3/uL (4.4-10.8)
[2024-07-30 15:58] LABS: ALT 34 U/L (14-59); AST 22 U/L (15-37); Alkaline Phosphatase 74 U/L (46-116); Anion Gap 11.1 mmol/L (3-11); BUN 13 mg/dL (7-18); Bilirubin, Total 0.29 mg/dL (0.2-1.0); CO2 27.9 mmol/L (21.0-32.0); CREATININE 0.6 mg/dL (0.55-1.02); Calcium 9.3 mg/dL (8.5-10.1); Chloride 105 mmol/L (98-107); Estimated GFR 102.69 (mL/min/1.73m2); Glucose 102 mg/dL (74-106); Potassium 3.7 mmol/L (3.5-5.1); Sodium 144 mmol/L (136-145); Total Protein 6.9 g/dL (6.4-8.2)
[2024-07-30 16:31] LABS: C-Reactive Protein < 0.50 mg/dL (<or=0.5)
== END 2024-07-30 14:51 | disposition home or self-care (01) ==
LOC: LBN 14:50
PROVIDERS: Visit Provider Internal Medicine
DX: L03.213 Periorbital cellulitis (principal)
CPT/HCPCS: 80053; 80202; 85025; 86140

== ENCOUNTER 2024-08-05 17:40 | Outpatient (REF) | payer OTHER, SELFPAY ==
[2024-08-05 17:04] LABS: Abs Immature Grans 0.01 10^3/uL (0.0-0.06); Absolute Basophil Count 0.19 10^3/uL (0.0-0.2); Absolute Eosinophil Count 0.57 10^3/uL (0.0-0.7); Absolute Lymphocyte Count 1.33 10^3/uL (1.2-3.4); Absolute Monocyte Count 0.71 10^3/uL (0.1-0.8); Absolute Neutrophil Count 3.46 10^3/uL (1.2-6.7); Eosinophils % 9.1 %; HCT 38.1 % (36.0-46.0); HGB 12.6 g/dL (11.2-15.7); Immature Grans % 0.2 %; Lymphocytes % 21.2 %; MCH 30.7 pg (27.0-33.0); MCHC 33.1 % (32.0-36.0); MCV 93 fL (80-95); MPV 9.7 fL (8.0-11.0); Monocytes % 11.3 %; Neutrophils % 55.2 %; Platelet Count 356 10^3/uL (130-400); RDW 12.6 % (11.7-14.6); RDW-SD 43.2 fL; WBC 6.27 10^3/uL (4.4-10.8)
[2024-08-05 17:15] LABS: ALT 41 U/L (14-59); AST 25 U/L (15-37); Albumin 3.8 g/dL (3.4-5.0); Alkaline Phosphatase 75 U/L (46-116); Anion Gap 9.3 mmol/L (3-11); BUN 8 mg/dL (7-18); C-Reactive Protein 0.64 mg/dL (<or=0.5); CO2 27.7 mmol/L (21.0-32.0); CREATININE 0.6 mg/dL (0.55-1.02); Calcium 9.1 mg/dL (8.5-10.1); Chloride 107 mmol/L (98-107); Estimated GFR 102.69 (mL/min/1.73m2); Glucose 93 mg/dL (74-106); Potassium 3.6 mmol/L (3.5-5.1); Sodium 144 mmol/L (136-145); Total Protein 6.6 g/dL (6.4-8.2)
[2024-08-05 17:26] LABS: Vancomycin, Trough 9.8 ug/mL (10.0-20.0)
== END 2024-08-05 17:41 | disposition home or self-care (01) ==
LOC: LBN 17:40
PROVIDERS: Visit Provider Internal Medicine
DX: Z79.2 Long term (current) use of antibiotics (principal); L03.213 Periorbital cellulitis
CPT/HCPCS: 80053; 80202; 85025; 86140